=== PATIENT | female | born 1955 | race Caucasian/White ===

== ENCOUNTER 2017-06-03 16:04 | Emergency (ER) | payer OTHER ==
[2017-06-03 16:11] VITALS: BP 147/74
--- NOTE | 2017-06-03 16:57 | ED Physician Documentation ---
PD HPI BACK INJURY - Stated complaint Stated Complaint: LT SIDE PX - History obtained from History obtained from: Patient - History of Present Illness Location: Left, Other (lower thoracic area.) Type of injury: Twist (helped lift heavy object couple days ago at work and has increased muscle pain and stiffness thoracic muscles. Did not hurt at the time, but felt pain/spasms that evening and has continued.) Where injury occurred: Work Timing - onset: How many days ago (2) Quality: Pain, Spasm Worsened by: Moving, Palpating Associated symptoms: No: Fever, Weakness, Numbness Contributing factors: Work related. No: Prior back surgery Similar symptoms before: Has not had sx before Recently seen: Not recently seen Review of Systems Constitutional: denies: Fever, Chills Nose: denies: Rhinorrhea / runny nose, Congestion Throat: denies: Sore throat Respiratory: denies: Dyspnea, Cough GI: denies: Abdominal Pain, Nausea, Vomiting PD PAST MEDICAL HISTORY - Past Medical History Past Medical History: No Respiratory: None - Past Surgical History Past Surgical History: Yes General: Appendectomy - Present Medications Home Medications: Ambulatory Orders Medication Instructions Recorded Confirmed Dextroamphetamine/Amphetamine 06/03/17 [Adderall 10 mg Tablet] HYDROcod/ACETAM 5/325 [Hampton 5/325] 1 tab PO Q6H PRN #20 tablet 06/03/17 Ibuprofen [Motrin] 600 mg PO TID #30 tab 06/03/17 Methocarbamol [Robaxin] 500 mg PO Q6H PRN #25 tablet 06/03/17 Multivitamin [Multiple Vitamins] 1 each PO 06/03/17 - Allergies Allergies/Adverse Reactions: Allergies Allergy/AdvReac Type Severity Reaction Status Date / Time Penicillins Allergy Itching Verified 06/03/17 16:11 - Social History Does the pt smoke?: No Smoking Status: Never smoker Does the pt drink ETOH?: Yes ETOH Use: Wine, Beer Does the pt have substance abuse?: No - Immunizations Immunizations are current?: Yes - POLST Patient has POLST: No PD ED PE NORMAL - Vitals Vital signs reviewed: Yes - General General: Alert and oriented X 3, Well developed/nourished, Other (seems uncomfortable, with guarded movement of torso. ) - Neck Neck: Supple, no meningeal sign, No adenopathy - Cardiac Cardiac: RRR, No murmur - Abdomen Abdomen: Soft, Non tender - Back Back: No CVA TTP, Other (tenderness of left lateral muscles lower thoracic area. No rash nor sores. Lungs are clear. ) - Derm Derm: Normal color, Warm and dry - Neuro Neuro: Alert and oriented X 3, No motor deficit, No sensory deficit, Normal speech Results - Vitals Vitals: Vital Signs - 24 hr 06/03/17 16:09 Temperature 36.3 C L Heart Rate 96 Respiratory 18 Rate Blood Pressure 147/74 H O2 Saturation 96 Oxygen O2 Source Room air PD MEDICAL DECISION MAKING - ED course Complexity details: considered differential (seems musculoskeletal), d/w patient Departure - Departure Disposition: 01 Home, Self Care Clinical Impression: Strain of muscle and tendon of back wall of thorax, initial encounter Condition: Stable Record reviewed to determine appropriate education?: Yes Instructions: ED Strain Chest Wall Ch Follow-Up: Vianey Carrillo PA-C [Primary Care Provider] - Prescriptions: HYDROcod/ACETAM 5/325 [Hampton 5/325] 1 tab PO Q6H PRN #20 tablet PRN Reason: Pain Ibuprofen [Motrin] 600 mg PO TID #30 tab Methocarbamol [Robaxin] 500 mg PO Q6H PRN #25 tablet PRN Reason: Spasms Comments: Off work for perhaps 1 or 2 days and then limited lifting, push pull, reaching for 4-5 days after that to allow the back muscles to be less stressed and heal. Ibuprofen 3 times a day for the next 5-7 days. Add Robaxin muscle relaxant if needed for spasms and stiffness. To that add Tylenol or hydrocodone if needed for pains. Recheck if not better over the next several days to week. Forms: Activity restrictions Discharge Date/Time: 06/03/17 17:27
[2017-06-03] MEDS ORDERED: HYDROcod/ACETAM 5/325 MG TABLET PO STA (17:12)
[2017-06-03] MEDS ORDERED: IBUPROFEN 600 MG TABLET PO STA (17:12)
[2017-06-03] MEDS ORDERED: METHOCARBAMOL 500 MG TABLET PO STA (17:12)
[2017-06-03] MEDS ORDERED: HYDROcod/ACET 5/325 Prepack 4 PO STA (17:46)
== END 2017-06-03 17:27 | disposition home or self-care (01) ==
LOC: ED 16:04
DX: S29.012A Strain of muscle and tendon of back wall of thorax, initial encounter (principal); X50.9XXA Other and unspecified overexertion or strenuous movements or postures, initial encounter; Y99.0 Civilian activity done for income or pay
CPT/HCPCS: 1040M; 99283; A9270

== ENCOUNTER 2020-05-27 16:26 | Outpatient (CLI) | payer MEDICARE, OTHER ==
--- NOTE | 2020-05-27 16:56 | XRAY Report ---
PROCEDURE: Wrist 4 View LT INDICATIONS: LEFT WRIST PAIN TECHNIQUE: 4 views of the wrist were acquired. COMPARISON: None. FINDINGS: Comminuted distal radial intra-articular fracture is seen. There is also ulnar styloid tip fracture. Diffuse carpal joint degeneration. Cortical irregularity of the scaphoid, cannot entirely exclude sca phoid fracture Soft tissue swelling. IMPRESSION: Distal radial intra-articular fracture and ulnar styloid tip fracture. Irregularity of the scaphoid, which could be chronic/degenerative although if there is clinical vickey rn for fracture, cross-sectional imaging could be obtained. Reviewed by: Kyler Nunes MD on 05/27/2020 4:54 PM PDT Approved by: Kyler Nunes MD on 05/27/2020 4:54 PM PDT Station ID: [id number]
== END 2020-05-27 23:59 | disposition home or self-care (01) ==
LOC: DI.N 16:26
PROVIDERS: ATTEND Family Medicine
DX: S52.572A Other intraarticular fracture of lower end of left radius, initial encounter for closed fracture (principal); S52.612A Displaced fracture of left ulna styloid process, initial encounter for closed fracture

== ENCOUNTER 2020-06-03 07:00 | Outpatient (CLI) | payer MEDICARE ==
--- NOTE | 2020-06-03 17:21 | XRAY Report ---
PROCEDURE: Wrist 3 View LT INDICATIONS: LEFT WRIST Fx TECHNIQUE: 3 views of the wrist were acquired. COMPARISON: 05/27/2020. FINDINGS: Bones: Comminuted, mildly displaced, intra-articular distal radial fracture is stable compared to romulo or exam. Small avulsion fracture of the tip of the ulnar styloid process is stable. Nondisplaced dist al ulnar fracture is noted in the current study. Cortical irregularity the scaphoid persists. Soft tissues: No suspicious soft tissue calcifications. IMPRESSION: 1. Mildly displaced, comminuted, intra-articular distal radius fracture. 2. Nondisplaced distal ulnar fracture medially proximal to the distal radioulnar joint. 3. Ulnar styloid process avulsion fracture. 4. Scaphoid cortical irregularity. Nondisplaced fracture is not excluded. Recommend CT or MRI for fur ther evaluation if clinically indicated. Reviewed by: Mae Power MD, PhD on 06/03/2020 5:20 PM PDT Approved by: Mae Power MD, PhD on 06/03/2020 5:20 PM PDT Station ID: [id number]
== END 2020-06-03 23:59 | disposition home or self-care (01) ==
LOC: DI.N 07:00
PROVIDERS: ATTEND Orthopaedic Surgery
DX: S52.572D Other intraarticular fracture of lower end of left radius, subsequent encounter for closed fracture with routine healing (principal); S52.602D Unspecified fracture of lower end of left ulna, subsequent encounter for closed fracture with routine healing; S52.612D Displaced fracture of left ulna styloid process, subsequent encounter for closed fracture with routine healing; R93.6 Abnormal findings on diagnostic imaging of limbs

== ENCOUNTER 2020-06-10 18:51 | Outpatient (CLI) | payer MEDICARE ==
--- NOTE | 2020-06-10 16:37 | XRAY Report ---
PROCEDURE: Wrist 3 View LT INDICATIONS: COLLES FX OF L RADIUS TECHNIQUE: 3 views of the wrist were acquired. COMPARISON: Left wrist radiographs 06/03/2020 and 05/27/2020 FINDINGS: Bones: Comminuted fracture of the distal radius is redemonstrated with unchanged alignment. A minimal ly displaced ulnar styloid tip fracture is seen. Subtle lucency at the lateral aspect of the distal u case management social worker is also redemonstrated. Cortical irregularity is again seen at the waist of the scaphoid, and a s caphoid fracture is not excluded. Soft tissues: No suspicious soft tissue calcifications. IMPRESSION: 1. Redemonstration of comminuted intra-articular fracture of the distal radius with unchanged alignm ent. 2. Nondisplaced fracture of the distal ulnar metaphysis and ulnar styloid tip fractures are again se en. 3. Possible scaphoid waist fracture is again suspected. No signs of proximal scaphoid osteonecrosis. Reviewed by: Dank Hanley MD on 06/10/2020 4:35 PM PDT Approved by: Dank Hanley MD on 06/10/2020 4:35 PM PDT Station ID: [id number]
== END 2020-06-10 23:59 | disposition home or self-care (01) ==
LOC: DI.N 18:51
PROVIDERS: ATTEND Orthopaedic Surgery
DX: S52.532A Colles' fracture of left radius, initial encounter for closed fracture (principal)

== ENCOUNTER 2020-07-12 07:56 | Outpatient (CLI) | payer MEDICARE ==
--- NOTE | 2020-07-12 11:18 | XRAY Report ---
PROCEDURE: Wrist 3 View LT INDICATIONS: FRACTURE OF LEFT RADIUS TECHNIQUE: 3 views of the wrist were acquired. COMPARISON: Plain films dated 06/10/2020 FINDINGS: Bones: Comminuted distal radial fracture is present, as before. No change in alignment. No change in ulnar styloid fracture. Scaphoid view: Not requested Soft tissues: No suspicious soft tissue calcifications. IMPRESSION: No change in distal radial and ulnar styloid fractures. Reviewed by: Katya Mason MD on 07/12/2020 11:16 AM PDT Approved by: Katya Mason MD on 07/12/2020 11:16 AM PDT Station ID: [id number]
== END 2020-07-12 23:59 | disposition home or self-care (01) ==
LOC: DI.N 07:56
PROVIDERS: ATTEND Orthopaedic Surgery
DX: S52.532D Colles' fracture of left radius, subsequent encounter for closed fracture with routine healing (principal)

== ENCOUNTER 2022-02-02 11:29 | Day surgery (SDC) | payer MEDICARE ==
[2022-02-02] MEDS ORDERED: LACTATED RINGERS 1,000 ML IV ONE ×2 (11:34→15:42)
--- NOTE | 2022-02-02 14:23 | ANESTHESIA ---
Pre-Anesthesia VS, & Labs - Diagnosis screening - Procedure colonoscopy Vital Signs: Temp Pulse Resp BP Pulse Ox O2 Flow Rate 36.3 C L 102 H 16 148/89 H 99 02/02/22 11:41 02/02/22 11:41 02/02/22 11:41 02/02/22 11:41 02/02/22 11:41 Height: 5 ft 2 in Weight (kg): 73 kg Body Mass Index: 29.4 BMI Classification: Overweight - NPO >8 hours - Is Patient ?: No Home Medications and Allergies Home Medications: Ambulatory Orders Levothyroxine Sodium [Unithroid] 1 tab PO DAILY 02/01/22 Losartan/Hydrochlorothiazide [Losartan-Hctz 100-12.5 mg Tab] 1 tab PO DAILY 02/01/22 Dextroamphetamine/Amphetamine [Adderall 10 mg Tablet] 10 mg PO DAILY 06/03/17 Multivitamin [Multiple Vitamins] 1 each PO DAILY 06/03/17 Levothyroxine Sodium [Unithroid] 1 tab PO DAILY 02/01/22 Losartan/Hydrochlorothiazide [Losartan-Hctz 100-12.5 mg Tab] 1 tab PO DAILY 02/01/22 Allergies/Adverse Reactions: Allergies Allergy/AdvReac Type Severity Reaction Status Date / Time Penicillins Allergy Itching Verified 06/03/17 16:11 Anes History & Medical History - Anesthetic History Anesthesia Complications: reports: No previous complications Family history of Anesthesia Complications: Denies Family history of Malignant Hyperthermia: Denies - Medical History Cardiovascular: reports: Hypertension Pulmonary: reports: None Gastrointestinal: reports: Hemorrhoids Urinary: reports: None Musculoskeletal: reports: Osteoarthritis, Chronic back pain Endocrine/Autoimmune: reports: HyPOthyroidism Skin: reports: None Smoking Status: Never smoker - Surgical History General: reports: Appendectomy Eyes Ears Nose Throat (EENT): reports: Tonsil/Adenoidectomy Gynecologic: reports: Tubal ligation Exam General: Alert, Oriented x3, Cooperative Dental: WNL Mouth Openin Fingerbreadth Neck Mobility: Normal Mallampati classification: II Thyromental Distance: 4-6 cm Respiratory: Lungs clear Cardiovascular: Regular rate Plan Anesthesia Type: General, Total IV Consent for Procedure(s) Verified and Reviewed: Yes Code Status: Attempt Resuscitation ASA classification: 2-Mild systemic disease Is this case an emergency?: No
[2022-02-02] MEDS ORDERED: PROPOFOL 500 MG/50 ML 500 MG/50 ML VIAL ONE (14:58)
[2022-02-02] MEDS ORDERED: GLYCOPYRROLATE 1 MG/5 ML VIAL ONE (15:08)
[2022-02-02] MEDS ORDERED: PROPOFOL 200 MG/20 ML VIAL IVP ONE (15:22)
[2022-02-02 16:38] VITALS: BP 116/70
--- NOTE | 2022-02-02 18:59 | ANESTHESIA POST OP EVALUATION ---
Anesthesia Post Eval - Post Anesthesia Eval Vitals: Last Vital Signs Temp 36.2 C L 02/02/22 16:15 Pulse 87 02/02/22 16:15 Resp 16 02/02/22 16:15 BP 116/70 02/02/22 16:15 Pulse Ox 99 02/02/22 16:15 O2 Flow Rate CV Function Including HR & BP: Stable Pain Control: Satisfactory Nausea & Vomiting: Negative Mental Status: Baseline Respiratory Status: Airway Patent Hydration Status: Satisfactory Anesthesia Complications: None
== END 2022-02-02 11:30 | disposition home or self-care (01) ==
LOC: SDS 11:29
PROVIDERS: ATTEND Surgery
PROC: 0DBK8ZX Excision of Ascending Colon, Via Natural or Artificial Opening Endoscopic, Diagnostic (ICD-10-PCS; 2022-02-02)
PROC: 0DBL8ZX Excision of Transverse Colon, Via Natural or Artificial Opening Endoscopic, Diagnostic (ICD-10-PCS; 2022-02-02)
PROC: 0DBM8ZX Excision of Descending Colon, Via Natural or Artificial Opening Endoscopic, Diagnostic (ICD-10-PCS; 2022-02-02)
PROC: 0DBH8ZX Excision of Cecum, Via Natural or Artificial Opening Endoscopic, Diagnostic (ICD-10-PCS; 2022-02-02)
PROC: 0DBP8ZX Excision of Rectum, Via Natural or Artificial Opening Endoscopic, Diagnostic (ICD-10-PCS; principal; 2022-02-02 12:30)
DX: C20 Malignant neoplasm of rectum (principal); D12.0 Benign neoplasm of cecum; D12.2 Benign neoplasm of ascending colon; D12.3 Benign neoplasm of transverse colon; D12.4 Benign neoplasm of descending colon; I10 Essential (primary) hypertension
CPT/HCPCS: 45380; 45385; J7120

== ENCOUNTER 2022-06-02 11:21 | Day surgery (SDC) | payer MEDICARE ==
[2022-06-02] MEDS ORDERED: PROPOFOL 500 MG/50 ML 500 MG/50 ML VIAL ONE (11:45)
[2022-06-02] MEDS ORDERED: MIDAZOLAM 2 MG/2 ML VIAL ONE (11:45)
[2022-06-02] MEDS ORDERED: fentaNYL 100 MCG/2 ML VIAL ONE (11:45)
[2022-06-02] MEDS ORDERED: LACTATED RINGERS 1,000 ML IV ONE ×2 (11:54→14:02)
--- NOTE | 2022-06-02 12:05 | ANESTHESIA ---
Pre-Anesthesia VS, & Labs - Diagnosis rectal cancer - Procedure port placement Vital Signs: Temp Pulse Resp BP Pulse Ox O2 Flow Rate 36.4 C L 79 12 145/77 H 100 06/02/22 11:39 06/02/22 11:39 06/02/22 11:39 06/02/22 11:39 06/02/22 11:39 Height: 5 ft 2.5 in Weight (kg): 67.4 kg Body Mass Index: 26.7 BMI Classification: Overweight - NPO >8 hours - Is Patient ?: No - Lab Results Lab results reviewed: Yes Home Medications and Allergies Home Medications: Ambulatory Orders Losartan/Hydrochlorothiazide [Losartan-Hctz 100-12.5 mg Tab] 1 tab PO DAILY 05/29/22 Dextroamphetamine/Amphetamine [Adderall 10 mg Tablet] 30 mg PO BID 06/03/17 Liothyronine [Cytomel] 25 mcg PO QDAC 05/24/22 Losartan/Hydrochlorothiazide [Losartan-Hctz 100-12.5 mg Tab] 1 tab PO DAILY 05/29/22 Allergies/Adverse Reactions: Allergies Allergy/AdvReac Type Severity Reaction Status Date / Time Penicillins Allergy Itching Verified 06/03/17 16:11 Anes History & Medical History - Anesthetic History Anesthesia Complications: reports: No previous complications - Medical History Cardiovascular: reports: Hypertension Pulmonary: reports: None Gastrointestinal: reports: Hemorrhoids, Other Urinary: reports: None Neuro: reports: None Musculoskeletal: reports: Osteoarthritis, Chronic back pain Endocrine/Autoimmune: reports: HyPOthyroidism Blood Disorders: reports: None Skin: reports: None Smoking Status: Never smoker Psychosocial: reports: No issues indicated History of Cancer?: Yes (rectal cancer) - Surgical History General: reports: Appendectomy Eyes Ears Nose Throat (EENT): reports: Tonsil/Adenoidectomy Gynecologic: reports: Tubal ligation Exam General: Alert, Oriented x3, Cooperative, No acute distress Dental: WNL Mouth Openin Fingerbreadth Neck Mobility: Normal Mallampati classification: II Thyromental Distance: 4-6 cm Mental/Cognitive Status: Alert/Oriented X3, Normal for patient Plan Anesthesia Type: General, MAC, Total IV Consent for Procedure(s) Verified and Reviewed: Yes Code Status: Attempt Resuscitation ASA classification: 2-Mild systemic disease Is this case an emergency?: No
[2022-06-02] MEDS ORDERED: BUPIVACAINE 0.25% PF 30 ML VIAL ONE (12:29)
[2022-06-02] MEDS ORDERED: LIDOCAINE MPF 2%-EPI 1:200000 20 ML VIAL ONE ×2 (12:29→12:36)
--- NOTE | 2022-06-02 12:49 | HISTORY & PHYSICAL EXAMINATION ---
Chief Complaint - Chief Complaint Chief Complaint: here for port placement History of Present Illness - History Obtained From Records Reviewed: yes History obtained from: pt Exam Limitations: none - History of Present Illness HPI Comment/Other: rectal cancer. no significant gi symptoms. chemotherapy recommended. History - Past Medical History Cardiovascular: reports: Hypertension Respiratory: reports: None Neuro: reports: None Endocrine/Autoimmune: reports: HyPOthyroidism GI: reports: Hemorrhoids, Other : reports: None HEENT: reports: Chronic vision loss Psych: reports: Depression, ADD/ADHD Musculoskeletal: reports: Osteoarthritis, Chronic back pain Derm: reports: None MRSA Hx?: No - Past Surgical History General: reports: Appendectomy /[employer]: reports: Tubal ligation HEENT: reports: Tonsil/Adenoidectomy - POLST Patient has POLST: No Meds/Allgy - Home Medications Home Medications: Ambulatory Orders Medication Instructions Recorded Confirmed Dextroamphetamine/Amphetamine 30 mg PO BID 06/03/17 06/02/22 [Adderall 10 mg Tablet] Liothyronine [Cytomel] 25 mcg PO QDAC 05/24/22 06/02/22 Losartan/Hydrochlorothiazide 1 tab PO DAILY 05/29/22 06/02/22 [Losartan-Hctz 100-12.5 mg Tab] - Allergies Allergies/Adverse Reactions: Allergies Allergy/AdvReac Type Severity Reaction Status Date / Time Penicillins Allergy Itching Verified 06/03/17 16:11 Review of Systems - Other Findings Other Findings: 10 pt ros as above otherwise unremarkable Exam - Vital Signs Reviewed Vital Signs: Yes Vital Signs: Vital Signs x48h Temp Pulse Resp BP Pulse Ox 06/02/22 11:39 36.4 C L 79 12 145/77 H 100 - Physical Exam General Appearance: positive: No acute distress, Alert Eyes Bilateral: positive: PERRL, EOMI, No scleral icterus ENT: positive: No signs of dehydration Neck: positive: No JVD, Trachea midline Respiratory: positive: No respiratory distress Cardiovascular: positive: Regular rate & rhythm Abdomen: positive: No distention Neurologic/Psychiatric: positive: Oriented x3 Conclusion/Plan - Problem List (1) Rectal cancer Conclusion/Plan: plan port placement. parq held and consent obtained - Lab Results Lab results reviewed: Yes
[2022-06-02] MEDS ORDERED: PROPOFOL 200 MG/20 ML VIAL IVP ONE (13:11)
[2022-06-02] MEDS ORDERED: LIDOCAINE MPF 2%-EPI 1:200000 20 ML VIAL SUBQ ONE ×2 (13:17→13:47)
[2022-06-02] MEDS ORDERED: BUPIVACAINE 0.25% PF 30 ML VIAL SUBQ ONE ×2 (13:17→13:46)
[2022-06-02] MEDS ORDERED: HYDROcod/ACETAM 5/325 MG TABLET PO PRN (14:15)
[2022-06-02] MEDS ORDERED: ONDANSETRON 4 MG/2 ML VIAL IVP PRN (14:15)
[2022-06-02] MEDS ORDERED: HYDROcod/ACETAM 10 MG/325 MG TABLET PO PRN (14:15)
[2022-06-02 14:18] VITALS: BP 124/58
--- NOTE | 2022-06-02 14:19 | OPERATIVE REPORT ---
Operative Report - General Procedure Date: 06/02/22 Planned Procedure: power port placement Pre-Op Diagnosis: rectal cancer and need for chemotherapy Procedure Performed: left subclavian powerport placement fluoroscopic guidance Post Op Diagnosis: same - Procedure Note Primary Surgeon: chel rose md Anesthesia Technique: Local, MAC Pathology: none Estimated Blood Loss (mL): 2 Drain/Tube Type: Other (none) Indications: need for chemotherapy Findings: good flush and flow. tip at junction svc/ atrium Complications: none - Other Other Information/Narrative: The patient was properly identified brought to the operating room and placed in supine position. Monitored anesthesia care was given as well as IV sedation. A towel roll was placed under the upper back. The patient was prepped and draped in a sterile fashion and given preoperative antibiotics. Local anesthetic was given. The left subclavian vein was easily accessed first pass with a needle. Guide wire placed and position confirmed. A subcutaneous pocket on the left upper chest was created measuring approximately 2-1/2 cm. Portacatheter tubing was then placed subcutaneous up to the venous access point. The portacatheter tubing was then easily placed with the use of a dilator peel-away sheath. The tubing was aspirated and flushed with saline. Under fluoroscopic guidance the t ubing was pulled back to the junction of the atrium and the superior vena cava. The portacatheter aspirated and flushed easily assuring good position. The portacatheter was then cut to size and further assembled. The port was secured to subcutaneous tissue with 2 interrupted 4-0 Prolene sutures. The port again was aspirated and flushed now with heparin. Buried interrupted subdermal 3-0 Vicryl sutures were then placed. Skin was closed with buried interrupted and running 4-0 Monocryl subcuticular suture. Dressing was applied. The patient tolerated the procedure well was awakened and brought to recovery in good condition.
--- NOTE | 2022-06-02 17:07 | ANESTHESIA POST OP EVALUATION ---
Anesthesia Post Eval - Post Anesthesia Eval Vitals: Last Vital Signs Temp 36.0 C L 06/02/22 14:15 Pulse 79 06/02/22 14:15 Resp 16 06/02/22 14:15 BP 124/58 L 06/02/22 14:15 Pulse Ox 95 06/02/22 14:15 O2 Flow Rate CV Function Including HR & BP: Stable Pain Control: Satisfactory Nausea & Vomiting: Negative Mental Status: Baseline Respiratory Status: Airway Patent Hydration Status: Satisfactory Anesthesia Complications: None
== END 2022-06-02 11:22 | disposition home or self-care (01) ==
LOC: SDS 11:21
PROVIDERS: ATTEND Surgery
DX: C20 Malignant neoplasm of rectum (principal); I10 Essential (primary) hypertension

== ENCOUNTER 2022-12-04 15:00 | Outpatient (CLI) | payer MEDICARE | END 2022-12-04 15:15 | disposition home or self-care (01) | LOC: LAB.N 15:00 | PROVIDERS: ATTEND Nurse Practitioner | DX: L08.9 Local infection of the skin and subcutaneous tissue, unspecified (principal) | CPT/HCPCS: 87070; 87205 ==

== ENCOUNTER 2023-03-14 08:00 | Outpatient (CLI) | payer MEDICARE | END 2023-03-14 08:01 | disposition home or self-care (01) | LOC: LAB.N 08:00 | PROVIDERS: ATTEND Physician Assistant Medical | DX: U07.1 COVID-19 (principal) ==

== ENCOUNTER 2023-05-02 08:00 | Outpatient (CLI) | payer MEDICARE | END 2023-05-02 23:59 | disposition home or self-care (01) | LOC: PC 08:00 | PROVIDERS: ATTEND Nurse Practitioner Adult Health | DX: Z51.5 Encounter for palliative care (principal); K12.31 Oral mucositis (ulcerative) due to antineoplastic therapy; C64.9 Malignant neoplasm of unspecified kidney, except renal pelvis; B08.4 Enteroviral vesicular stomatitis with exanthem; C19 Malignant neoplasm of rectosigmoid junction; C78.7 Secondary malignant neoplasm of liver and intrahepatic bile duct; C78.00 Secondary malignant neoplasm of unspecified lung | CPT/HCPCS: 99215 ==

== ENCOUNTER 2023-05-18 08:00 | Outpatient (CLI) | payer MEDICARE | END 2023-05-18 23:59 | disposition home or self-care (01) | LOC: PC 08:00 | PROVIDERS: ATTEND Nurse Practitioner Adult Health | DX: Z51.5 Encounter for palliative care (principal); B08.4 Enteroviral vesicular stomatitis with exanthem; K12.31 Oral mucositis (ulcerative) due to antineoplastic therapy; F41.9 Anxiety disorder, unspecified; Z85.528 Personal history of other malignant neoplasm of kidney; C20 Malignant neoplasm of rectum; Z71.89 Other specified counseling | CPT/HCPCS: 99215 ==

== ENCOUNTER 2023-06-23 08:00 | Outpatient (CLI) | payer MEDICARE | END 2023-06-23 08:01 | disposition home or self-care (01) | LOC: LAB.N 08:00 | PROVIDERS: ATTEND Physician Assistant | DX: Z20.822 Contact with and (suspected) exposure to COVID-19 (principal) ==

== ENCOUNTER 2023-07-11 09:15 | Outpatient (CLI) | payer MEDICARE | END 2023-07-11 23:59 | disposition home or self-care (01) | LOC: PC 09:15 | PROVIDERS: ATTEND Nurse Practitioner Adult Health | DX: Z51.5 Encounter for palliative care (principal); C18.7 Malignant neoplasm of sigmoid colon; C20 Malignant neoplasm of rectum; C78.00 Secondary malignant neoplasm of unspecified lung; C78.7 Secondary malignant neoplasm of liver and intrahepatic bile duct; T50.905A Adverse effect of unspecified drugs, medicaments and biological substances, initial encounter; L27.1 Localized skin eruption due to drugs and medicaments taken internally; T45.1X5A Adverse effect of antineoplastic and immunosuppressive drugs, initial encounter; K12.31 Oral mucositis (ulcerative) due to antineoplastic therapy; F41.9 Anxiety disorder, unspecified; R21 Rash and other nonspecific skin eruption; R63.4 Abnormal weight loss; Z71.89 Other specified counseling | CPT/HCPCS: 99215 ==

== ENCOUNTER 2023-08-08 08:00 | Outpatient (CLI) | payer MEDICARE | END 2023-08-08 23:59 | disposition home or self-care (01) | LOC: PC 08:00 | PROVIDERS: ATTEND Nurse Practitioner Adult Health | DX: Z51.5 Encounter for palliative care (principal); C20 Malignant neoplasm of rectum; C78.7 Secondary malignant neoplasm of liver and intrahepatic bile duct; E87.6 Hypokalemia; R53.83 Other fatigue; K12.31 Oral mucositis (ulcerative) due to antineoplastic therapy; L27.1 Localized skin eruption due to drugs and medicaments taken internally; T45.1X5A Adverse effect of antineoplastic and immunosuppressive drugs, initial encounter; I10 Essential (primary) hypertension; F41.9 Anxiety disorder, unspecified; Z79.899 Other long term (current) drug therapy | CPT/HCPCS: 99215 ==

== ENCOUNTER 2023-08-22 08:46 | Outpatient (CLI) | payer MEDICARE ==
[2023-08-22 09:16] LABS: CHOL/HDL RATIO 2.3 (<4.4); CHOLESTEROL 230 mg/dL; HDL CHOLESTEROL 98 mg/dL; LDL CHOLESTEROL,CALCULATED 95 mg/dL; TRIGLYCERIDES 186 mg/dL; VLDL CHOLESTEROL 37 mg/dL
[2023-08-22 09:27] LABS: THYROID STIMULATING HORMONE 5.91 uIU/mL (0.34-5.60)
== END 2023-08-22 08:47 | disposition home or self-care (01) ==
LOC: LAB 08:46
PROVIDERS: ATTEND Physician Assistant Medical
DX: E78.5 Hyperlipidemia, unspecified (principal); E04.1 Nontoxic single thyroid nodule; E03.9 Hypothyroidism, unspecified
CPT/HCPCS: 36415; 80061; 83721; 84439; 84443

== ENCOUNTER 2023-09-19 08:00 | Outpatient (CLI) | payer MEDICARE | END 2023-09-19 23:59 | disposition home or self-care (01) | LOC: PC 08:00 | PROVIDERS: ATTEND Nurse Practitioner Adult Health | DX: Z51.5 Encounter for palliative care (principal); C19 Malignant neoplasm of rectosigmoid junction; C78.02 Secondary malignant neoplasm of left lung; C78.7 Secondary malignant neoplasm of liver and intrahepatic bile duct; K12.31 Oral mucositis (ulcerative) due to antineoplastic therapy; T45.1X5A Adverse effect of antineoplastic and immunosuppressive drugs, initial encounter; E87.6 Hypokalemia; F41.9 Anxiety disorder, unspecified; Z71.89 Other specified counseling | CPT/HCPCS: 99215 ==